=== PATIENT | female | born 1985 | race Caucasian/White ===

== ENCOUNTER 2017-02-27 18:32 | Emergency (ER) | payer BC, MEDICAID ==
[~2017-02-27] VITALS: Ht 152.4 cm; Wt 75.0 kg
[2017-02-27 18:57] VITALS: Ht 152.4 cm; Wt 75.0 kg
[2017-02-27] MEDS ORDERED: IBUPROFEN 600 MG TAB PO ONE (21:00)
[2017-02-27 22:10] VITALS: TEMP 101.1
--- NOTE | 2017-02-27 22:46 | ERD ---
ER Documentation Chief Complaint Chief Complaint fever, congestion HPI 32-year-old female, previously healthy, presents to emergency department complaining of acute onset of high fever, dry cough, sore throat, nasal congestion, throbbing headache and generalized arthralgia that is started approximately 8 hours ago. No influenza vaccine this season. No treatment attempted at this time. Positive sick contact at home. The patient denies chest pain, shortness of breath. No history of recent traveling ROS SYSTEMIC: Fever, chills, fatigue, decreased appetite. NEURO: headache but no dizziness, no weakness EYE symptoms: mild eye erythema OTOLARYNGEAL symptoms: nasal congestion, sore throat, bilat ear pain. CARDIOVASCULAR symptoms: No chest pain, no cyanosis PULMONARY symptoms: cough, no wheezing, no respiratory distress. GASTROINTESTINAL symptoms: No abdominal pain, no nausea, no vomiting, no diarrhea, no urinary symptoms : no dysuria, no frequency, no hematuria SKIN: No rashes Medications Home Meds Active Scripts Ibuprofen* (Motrin*) 600 Mg Tab, 600 MG PO Q6H Y for PAIN AND OR ELEVATED TEMP, #30 TAB Prov:MELIA TAMEZ MD 02/27/17 Oseltamivir Phosphate* (Tamiflu*) 75 Mg Capsule, 75 MG PO BID for 5 Days, CAP Prov:MELIA TAMEZ MD 02/27/17 Allergies Allergies: Coded Allergies: No Known Allergy (Unverified , 01/28/13) PMhx/Soc Medical and Surgical Hx: pt denies Medical Hx, pt denies Surgical Hx Hx Alcohol Use: No Hx Substance Use: No Hx Tobacco Use: No Smoking Status: Never smoker Physical Exam Vitals Vital Signs Date Time Temp Pulse Resp B/P Pulse Ox O2 Delivery O2 Flow Rate FiO2 02/27/17 22:10 101.1 02/27/17 18:57 101.5 103 21 137/72 99 Physical Exam Patient is in moderate distress due to cough and fever, vital signs showed fever. EYES: PERRLA, EOMI, injected sclerae EARS: Canals clear, erythematous tympanic membranes THROAT: Erythematous oropharynx. NECK: Supple, No lymphadenopathy. Full ROM without pain or tenderness. HEART: RRR, no rubs, murmurs, clicks or gallops. LUNGS: Bilateral rhonchi to auscultation. ABDOMEN: Soft, non-tender without masses or hepatosplenomegaly. EXTREMITIES: No edema bilaterally. BACK: Full ROM, no deformity, normal back exam NEURO: Cranial nerves grossly intact, no motor or sensory deficit Results 24 hrs Current Medications Medications (Trade) Dose Ordered Sig/Jennifer Route PRN Reason Start Time Stop Time Status Last Admin Dose Admin Ibuprofen (Motrin) 600 mg ONCE ONCE PO 02/27/17 21:00 02/27/17 21:01 DC 02/27/17 21:39 Procedures/MDM 32-year-old female, with acute onset of high fever, cough and general malaise with a rapid worsening of symptoms. Physical exam revealed fever, ill looking patient with erythematous oropharynx and tympanic membranes with bilateral pulmonary rhonchi. Differential diagnosis include but not limited to: Respiratory infection bacterial/viral/fungal. Asthma/COPD, pneumonitis, allergies, GERD. Less likely foreign body aspiration, cardiac related, aspiration pneumonia, malignancy. Physical examination and clinical presentation consistent most likely with influenza. During the ED course the patient remained stable, fever resolved with medications given in ER, no new complaints. Clinical impression discussed with patient who agrees with management. The patient is stable to be treated outpatient and will be discharged home with a Rx for antiviral medication and ibuprofen, antibiotics not indicated at this time. Some side effects of prescribed medications (headache, rash, nausea, vomiting, diarrhea, drowsiness, habituation, bleeding, hypertension, interactions with other medications) were reviewed. The patient was instructed to follow up with the primary care provider in the next 48h. If symptoms persist, worsen or new symptoms develop, then patient should return to the ED immediately. Disclaimer: Inadvertent spelling and grammatical errors are likely due to EHR/ dictation software use and do not reflect on the overall quality of patient care. Also, please note that the electronic time recorded on this note does not necessarily reflect the actual time of the patient encounter. Departure Diagnosis: Primary Impression: Influenza-like illness Condition: Stable Additional Instructions: Call your primary care doctor TOMORROW for an appointment during the next 1-2 days. See the doctor sooner or return here if your condition worsens before your appointment time. Thank you very much for allowing us to participate in your care. Your health and safety is our top priority at [facility] [place]. Have prescriptions filled and follow precisely the directions on the label. Follow-up with primary care provider during the next 4 days and bring all the information and medications prescribed. If illness has not improved in 2 days, then make an appointment with primary care provider. If the provider is unavailable, return to the Emergency Department immediately. MELIA TAMEZ MD Feb 27, 2017 22:46
[2017-02-27] MEDS ORDERED: OSLT75C PO (22:47)
[2017-02-27] MEDS ORDERED: IBUP-1542 PO (22:47)
== END 2017-02-27 23:12 | disposition home or self-care (01) ==
LOC: FTE 18:32
DX: R50.9 Fever, unspecified (principal); J02.9 Acute pharyngitis, unspecified; R09.81 Nasal congestion; R51 Headache
CPT/HCPCS: 99283